=== PATIENT | female | born 1995 | race American Indian/Alaskan Native ===

== ENCOUNTER 2020-10-27 10:26 | Outpatient (CLI) | payer OTHER | END 2020-10-27 18:00 | disposition home or self-care (01) | LOC: OBS/DEL 10:26 | PROVIDERS: ATTEND Obstetrics & Gynecology | DX: O26.892 Other specified pregnancy related conditions, second trimester (principal); R10.2 Pelvic and perineal pain; O26.842 Uterine size-date discrepancy, second trimester; O34.211 Maternal care for low transverse scar from previous cesarean delivery; O60.02 Preterm labor without delivery, second trimester; Z3A.22 22 weeks gestation of pregnancy ==

== ENCOUNTER 2021-02-09 13:46 | Outpatient (CLI) | payer OTHER | END 2021-02-09 15:17 | disposition home or self-care (01) | LOC: PRENATAL 13:46 | PROVIDERS: ATTEND Obstetrics & Gynecology Maternal & Fetal Medicine | DX: O26.843 Uterine size-date discrepancy, third trimester (principal); O36.8131 Decreased fetal movements, third trimester, fetus 1; O36.5931 Maternal care for other known or suspected poor fetal growth, third trimester, fetus 1; Z36.89 Encounter for other specified antenatal screening; Z3A.36 36 weeks gestation of pregnancy ==